=== PATIENT | female | born 1965 | race Two or more races ===

== ENCOUNTER 2025-05-03 19:49 | Emergency (ER) | payer OTHER ==
[~2025-05-03] VITALS: Ht 157.5 cm; Wt 89.4 kg
[2025-05-03] MEDS ORDERED: KETOROLAC TROMETHAMINE 30 MG VIAL IM ONE (23:45)
[2025-05-03] MEDS ORDERED: DEXAMETHASONE SODIUM PHOSPHATE 4 MG/ML VIAL IM ONE (23:45)
[2025-05-03] MEDS ORDERED: ORPHENADRINE CITRATE 30 MG/ML AMPUL IM ONE (23:45)
[2025-05-03] MEDS ORDERED: KETOROLAC TROMETHAMINE 30 MG VIAL ONE (23:53)
[2025-05-03] MEDS ORDERED: DEXAMETHASONE SODIUM PHOSPHATE 4 MG/ML VIAL ONE (23:54)
[2025-05-03] MEDS ORDERED: ORPHENADRINE CITRATE 30 MG/ML AMPUL ONE (23:54)
[2025-05-04 01:29] LABS: BUN CREA RATIO 9.0 (7.0-25.0); CREATININE SERUM 0.66 mg/dL (0.55-1.02); GFR 90.75; OSMOLALITY SERUM 285.0 MOSM/KG (275-295)
[2025-05-04 01:31] LABS: GLUCOSE FASTING 270.0 mg/dL (65-100)
[2025-05-04 01:49] LABS: BASO % 0.5 % (0.1-1.2); EOS # 0.29 (0.04-0.54); EOS % 2.7 % (0.7-7.0); LYMPH # 3.34 (1.18-3.74); LYMPH % 31.4 % (19.3-53.1); MEAN PLATELET VOLUME 10.80 fl (9.4-12.4); MONO # 0.72 (0.24-0.82); MONO % 6.8 % (4.7-12.5); NEUT # 6.21 (1.56-6.13); NEUT % 58.2 % (34.0-71.1); RED CELL DISTRIBUTION WIDTH 11.6 % (11.6-14.4)
[2025-05-04] MEDS ORDERED: NORFLEX100MG PO (04:45)
[2025-05-04] MEDS ORDERED: KETO10TA2 PO (04:45)
[2025-05-04 04:58] VITALS: BP 115/80; O2SAT 98
== END 2025-05-04 04:59 | disposition home or self-care (01) ==
LOC: ER 19:50
PROVIDERS: Student in an Organized Health Care Education/Training Program
DX: S89.80XA Other specified injuries of unspecified lower leg, initial encounter (principal); S39.82XA Other specified injuries of lower back, initial encounter; W19.XXXA Unspecified fall, initial encounter; Y93.89 Activity, other specified; Y92.098 Other place in other non-institutional residence as the place of occurrence of the external cause; Y99.8 Other external cause status; I10 Essential (primary) hypertension; E03.8 Other specified hypothyroidism; E11.9 Type 2 diabetes mellitus without complications
CPT/HCPCS: 36415; 70450; 72125; 73565; 74176; 96372; 99284; J1100; J1885; J2360